=== PATIENT | female | born 1995 | race Caucasian/White ===

== ENCOUNTER 2018-08-15 09:33 | Emergency (ER) | payer MEDICAID, OTHER ==
[~2018-08-15] VITALS: Ht 162.6 cm; Wt 61.2 kg
[2018-08-15 09:48] VITALS: BP 121/78
[2018-08-15] MEDS ORDERED: METHOCARBAMOL 500 MG TAB PO ONE (10:30)
[2018-08-15] MEDS ORDERED: KETOROLAC TROMETH 60MG/2ML VIAL IM ONE (10:30)
== END 2018-08-15 13:11 | disposition home or self-care (01) ==
LOC: ER 09:34
DX: S13.4XXA Sprain of ligaments of cervical spine, initial encounter (principal); R91.8 Other nonspecific abnormal finding of lung field; V49.9XXA Car occupant (driver) (passenger) injured in unspecified traffic accident, initial encounter; Y93.89 Activity, other specified; Y99.8 Other external cause status; Y92.410 Unspecified street and highway as the place of occurrence of the external cause
CPT/HCPCS: 71250; 72125; 96372; 99284; J1885

== ENCOUNTER 2018-11-22 10:42 | Emergency (ER) | payer OTHER, MEDICAID ==
[~2018-11-22] VITALS: Ht 162.6 cm; Wt 62.6 kg
[2018-11-22 11:40] LABS: Basophils # (auto) 0 uL; Basophils % (auto) 0.2 % (0.0-2.0); Eosinophils # (auto) 0 uL; Eosinophils % (auto) 0.1 % (0.0-7.0); Hematocrit 43.9 % (36.0-46.0); Lymphocytes # (auto) 0.6 uL; Lymphocytes % (auto) 6.2 % (10.0-50.0); Mean Corpuscular Hemoglobin 30.5 pg (28.0-32.0); Mean Corpuscular Hgb Conc. 34.1 g/dL (32.0-36.0); Mean Corpuscular Volume 89.5 fL (80.0-100.0); Monocytes # (auto) 0.6 uL; Monocytes % (auto) 5.9 % (0.0-12.0); Neutrophils # (auto) 8.4 uL; Neutrophils % (auto) 87.6 % (37.0-80.0); Platelet Count (auto) 269 10^3/uL (140-450); Red Blood Cells 4.91 10^6/uL (4.0-5.20); Red Cell Distribution Width 13.7 % (11.8-14.3); White Blood Cell 9.6 10^3/uL (4.4-10.8)
[2018-11-22 11:49] VITALS: BP 126/81
[2018-11-22 11:49] LABS: Chloride 107 mmol/L (98-107); Potassium 3.8 mmol/L (3.5-5.1); Sodium 137 mmol/L (136-145)
[2018-11-22 11:59] LABS: Alanine Aminotransferase 15 U/L (13-56); Albumin 3.6 g/dL (3.4-5.0); Alkaline Phosphatase 81 U/L (45-117); Amylase 115 U/L (25-115); Anion Gap 8 (5-15); Aspartate Aminotransferase 15 U/L (15-37); BUN/Creatinine Ratio 14.3; Bilirubin, Total 0.7 mg/dL (0.2-1.0); Blood Urea Nitrogen 10 mg/dL (7-18); Calcium 8.7 mg/dL (8.5-10.1); Carbon Dioxide 22 mmol/L (21-32); GFR African American 136 mL/min; GFR Non-African American 112 mL/min; Glucose 86 mg/dL (74-106); Lipase 145 U/L (73-393); Magnesium 1.9 mg/dL (1.6-2.6)
[2018-11-22 12:33] LABS: Urine Bacteria FEW /hpf (None Seen); Urine Blood TRACE /uL (Negative); Urine Specific Gravity 1.018 (1.001-1.035); Urine WBC 1 /hpf (0 - 5)
[2018-11-22] MEDS ORDERED: ONDANSETRON ODT 4 MG TAB PO ONE (12:45)
== END 2018-11-22 12:57 | disposition home or self-care (01) ==
LOC: ER 10:44
DX: K29.70 Gastritis, unspecified, without bleeding (principal)
CPT/HCPCS: 36415; 80053; 81001; 82150; 83690; 83735; 84484; 84702; 85025; 99283; Q0162

== ENCOUNTER 2019-12-05 12:24 | Emergency (ER) | payer MEDICAID, OTHER ==
[~2019-12-05] VITALS: Ht 160 cm; Wt 68.0 kg
[2019-12-05 13:59] VITALS: BP 112/56
== END 2019-12-05 13:59 | disposition home or self-care (01) ==
LOC: ER 12:24
DX: H10.31 Unspecified acute conjunctivitis, right eye (principal)

== ENCOUNTER 2019-12-10 07:27 | Emergency (ER) | payer OTHER ==
[~2019-12-10] VITALS: Ht 162.6 cm; Wt 68.0 kg
[2019-12-10 09:39] VITALS: BP 117/86
== END 2019-12-10 10:16 | disposition home or self-care (01) ==
LOC: ER 07:27
DX: H10.11 Acute atopic conjunctivitis, right eye (principal)